=== PATIENT | female | born 1945 | race Caucasian/White ===

== ENCOUNTER 2022-01-05 10:58 | Outpatient (REF) | payer MEDICARE, SELFPAY ==
[2022-01-05 14:20] LABS: Anion Gap 16 (12-20); Blood Urea Nitrogen 17 mg/dL (9-16); Calcium 9.4 mg/dL (8.4-10.2); Carbon Dioxide 22 mmol/L (22-29); Chloride 104 mmol/L (96-108); Estimated Glomerular Filt Rate > 60; Glucose Random 98 mg/dL (60-115); Potassium 4.3 mmol/L (3.3-5.1); Sodium 138 mmol/L (135-145)
[2022-01-05 14:46] LABS: Vitamin D 25-OH Total 18.4 ng/mL (>30)
[2022-01-06 12:55] LABS: Calcium (PTHI) 9.4 mg/dL (8.6-10.4); PTHI 75 pg/mL (16-77)
== END 2022-01-05 10:59 | disposition home or self-care (01) ==
LOC: HO.10HDL 10:58
PROVIDERS: Visit Provider Internal Medicine Hypertension Specialist
DX: E83.52 Hypercalcemia (principal); I10 Essential (primary) hypertension
CPT/HCPCS: 36415; 80048; 82306; 83970